=== PATIENT | male | born 1995 | race Two or more races ===

== ENCOUNTER 2022-06-11 21:23 | Emergency (ER) | payer OTHER ==
[~2022-06-11] VITALS: Ht 172.7 cm; Wt 86.2 kg
--- NOTE | 2022-06-11 21:41 | NUR ---
BIBS. LEFT CHEST PAIN RADIATING TO LEFT SHOULDER X YESTERDAY. INTERMITTENT ACHY AND SHARP 12/27. PT A/OX4. TOLERTING R/A WELL WITH NO RESP DISTRESS. CONNECTED PT TO POX AND MONITOR. SAFETY MEASURES IN PLACE.
--- NOTE | 2022-06-11 22:18 | NUR ---
DIGITAL MEDIA PLANNER AT PT'S BEDSIDE
--- NOTE | 2022-06-11 22:30 | NUR ---
RAC #[id number] S/L BLOOD COLLECTED AND SENT TO LAB
[2022-06-11 22:52] LABS: BASOPHILS % (AUTO) 0.3 % (0.0-2.0); EOSINOPHILS % (AUTO) 1.5 % (0.0-6.0); HEMATOCRIT 45 % (39-51); HEMOGLOBIN 15.2 g/dL (13.5-17.5); LYMPHOCYTES # (AUTO) 1.6 K/uL (0.8-4.8); LYMPHOCYTES % (AUTO) 21.5 % (20.0-44.0); MEAN CORPUSCULAR HGB CONC 34 g/dl (31.0-36.0); MEAN CORPUSCULAR VOLUME 87 fL (80-96); MONOCYTES # (AUTO) 0.7 K/uL (0.1-1.30); MONOCYTES % (AUTO) 9.6 % (2.0-12.0); NEUTROPHILS # (AUTO) 4.9 K/uL (1.8-8.9); NEUTROPHILS % (AUTO) 67.1 % (43.0-81.0); PLATELET COUNT (AUTO) 218 K/uL (150-450); RED BLOOD CELL COUNT(AUTO) 5.17 MIL/uL (4.5-6.0); WHITE BLOOD COUNT (AUTO) 7.3 K/uL (4.3-11.0)
[2022-06-11] MEDS ORDERED: IBUPROFEN 400 MG TABLET PO ONE (23:00)
[2022-06-11 23:10] LABS: D-DIMER 0.19 mg/L(FEU (0.17-0.50)
[2022-06-11 23:16] LABS: CALCIUM, SERUM 8.9 mg/dL (8.5-10.1); CARBON DIOXIDE 27 mmol/L (21-32); CHLORIDE 105 mmol/L (98-107); CREATININE 0.9 mg/dL (0.6-1.3); GLUCOSE 96 mg/dL (74-106); POTASSIUM 3.3 mmol/L (3.5-5.1); SODIUM SERUM 138 mmol/L (136-145); UREA NITROGEN, BLOOD 14 mg/dL (7-18)
[2022-06-11 23:22] LABS: ALANINE AMINOTRANSFERASE 40 U/L (12-78); ALBUMIN 3.9 g/dL (3.4-5.0); ALKALINE PHOSPHATASE 75 U/L (46-116); ASPARTATE AMINOTRANSFERASE 16 U/L (15-37); BILIRUBIN,DIRECT 0.1 mg/dL (0.0-0.2); BILIRUBIN,TOTAL 0.4 mg/dL (0.2-1.0); TOTAL PROTEIN, SERUM 7.3 g/dL (6.4-8.2)
[2022-06-11] MEDS ORDERED: IBUPROFEN 400 MG TABLET ONE (23:55)
--- NOTE | 2022-06-12 00:48 | NUR ---
RESTAURANT LEAD AT PT'S BEDSIDE
--- NOTE | 2022-06-12 02:26 | NUR ---
Patient discharged to home in stable condition. Written and verbal after care instructions given. Patient verbalizes understanding of instruction. IV removed. Catheter intact and site benign. Pressure and 4x4 applied to site. No bleeding noted. pt ambulatory with a steady gait
[2022-06-12 02:27] VITALS: BP 115/61
== END 2022-06-12 02:27 | disposition home or self-care (01) ==
LOC: ER 21:25
DX: R07.9 Chest pain, unspecified (principal)
CPT/HCPCS: 36415; 71045-TC; 80048-TC; 80076-TC; 83880; 84484-TC; 85025-TC; 85378-TC; 85730-TC